=== PATIENT | female | born 1945 | race African-American/Black ===

== ENCOUNTER 2022-08-31 19:28 | Inpatient (IN) | payer MEDICARE, MEDICAID ==
[~2022-08-31] VITALS: Ht 162.6 cm; Wt 64.0 kg
[2022-08-31 20:04] LABS: BASOPHILS % 1.2 % (0.0-2.0); EOSINOPHILS % 1.7 % (0.0-5.0); HEMATOCRIT. 35.8 % (36.0-48.0); HEMOGLOBIN. 12.1 g/dL (12.0-16.0); LYMPHOCYTES % 35.4 % (20.0-50.0); MEAN CORPUSCULAR HEMOGLOBIN 33.2 pg (28.0-32.0); MEAN CORPUSCULAR VOLUME 98.2 fL (81.0-99.0); MEAN PLATELET VOLUME 7.7 fl (7.4-10.4); MONOCYTES % 9.2 % (2.0-8.0); NEUTROPHILS % 52.5 % (40.0-76.0); PLATELET 280 x1000/uL (130-400); RED BLOOD CELL COUNT 3.65 mill/uL (4.2-5.4); RED CELL DISTRIBUTION WIDTH 13.5 % (11.6-14.6)
[2022-08-31 20:13] LABS: CHLORIDE 106 mEq/L (98-107)
[2022-08-31] MEDS ORDERED: POTASSIUM CHLORIDE 20MEQ/PACKET PO ONE (20:30)
[2022-08-31] MEDS ORDERED: DOCUSATE SODIUM 100MG CAPSULE PO PRN (23:15)
[2022-08-31] MEDS ORDERED: NITROGLYCERIN 0.4MG TABLET SL SL PRN (23:15)
[2022-08-31] MEDS ORDERED: NA PHOS,M-B/NA PHOS,DI-BA ENEMA 118ML PR PRN (23:15)
[2022-08-31] MEDS ORDERED: ACETAMINOPHEN 325MG TABLET PO PRN ×2 (23:15)
[2022-08-31] MEDS ORDERED: KETOROLAC 15MG/ML VIAL IV PRN (23:15)
[2022-08-31] MEDS ORDERED: ONDANSETRON HCL 4MG/2ML INJ IV PRN (23:15)
[2022-08-31] MEDS ORDERED: IPRATROPIUM/ALBUTEROL 0.5-3(2.5)MG/3ML NEB NEB PRN (23:15)
[2022-08-31] MEDS ORDERED: GUAIFENESIN 200MG/10ML SUGAR FREE UDC PO PRN (23:15)
[2022-08-31] MEDS ORDERED: CLONIDINE 0.1MG TABLET PO PRN (23:15)
[2022-08-31] MEDS ORDERED: MAGNESIUM/ALUMINUM HYDROXIDE/SIMETHICONE 30ML UDC PO PRN (23:15)
[2022-08-31] MEDS ORDERED: ZOLPIDEM TARTRATE 5MG TABLET PO PRN (23:15)
[2022-08-31] MEDS ORDERED: HALOPERIDOL LACTATE 5MG/ML VIAL IM PRN (23:15)
[2022-09-01 01:10] LABS: T4 FREE 1.14 ng/dL (0.76-1.46)
[2022-09-01 05:50] LABS: BASOPHILS % 1.2 % (0.0-2.0); EOSINOPHILS % 3.2 % (0.0-5.0); HEMATOCRIT. 36.2 % (36.0-48.0); HEMOGLOBIN. 12.6 g/dL (12.0-16.0); LYMPHOCYTES % 46.9 % (20.0-50.0); MEAN CORPUSCULAR HEMOGLOBIN 34.3 pg (28.0-32.0); MEAN CORPUSCULAR VOLUME 98.5 fL (81.0-99.0); MEAN PLATELET VOLUME 8.4 fl (7.4-10.4); MONOCYTES % 8.7 % (2.0-8.0); PLATELET 277 x1000/uL (130-400); RED BLOOD CELL COUNT 3.67 mill/uL (4.2-5.4); RED CELL DISTRIBUTION WIDTH 13.8 % (11.6-14.6)
[2022-09-01 05:56] LABS: CHLORIDE 109 mEq/L (98-107)
[2022-09-01 05:59] LABS: CREATINE KINASE 149 IU/L (26-192)
[2022-09-01 06:04] LABS: PHOSPHORUS 3.1 mg/dL (2.5-4.9)
[2022-09-01 08:25] LABS: CLARITY URINE CLOUDY (CLEAR); COLOR URINE YELLOW (YELLOW); KETONES URINE NEGATIVE (NEGATIVE); LEUKOCYTE ESTERASE URINE 3+ (NEGATIVE); NITRITE URINE NEGATIVE (NEGATIVE); OCCULT BLOOD URINE TRACE (NEGATIVE); PROTEIN URINE TRACE (NEGATIVE); SPECIFIC GRAVITY URINE 1.021 (1.005-1.030)
[2022-09-01 09:00] LABS: *AMPHETAMINES SCREEN URINE NEGATIVE (NEGATIVE); *BARBITURATES SCREEN URINE NEGATIVE (NEGATIVE); *BENZODIAZEPINES SCREEN URINE NEGATIVE (NEGATIVE); *COCAINE SCREEN URINE NEGATIVE (NEGATIVE); CANNABINOID URINE SCREEN NEGATIVE (NEGATIVE); METHADONE URINE SCREEN NEGATIVE (NEGATIVE); OPIATES URINE SCREEN NEGATIVE (NEGATIVE); PHENCYCLIDINE URINE SCREEN NEGATIVE (NEGATIVE)
[2022-09-01] MEDS ORDERED: AMLODIPINE 10MG TABLET PO SCH (09:00)
[2022-09-01] MEDS ORDERED: FAMOTIDINE 20MG TABLET PO SCH (09:00)
[2022-09-01] MEDS ORDERED: ASPIRIN 325MG EC TABLET PO SCH (09:00)
[2022-09-01] MEDS ORDERED: ENOXAPARIN 40MG/0.4ML SYR SUBCUT SCH (09:00)
[2022-09-01 15:14] VITALS: BP 159/84
== END 2022-09-01 17:40 | disposition left against medical advice (07) | DRG 72 ==
LOC: ER 19:28 → MICUSO 23:00 → SUPCPDRO 23:06
PROVIDERS: ADMIT Internal Medicine; ATTEND Internal Medicine
DX: G93.40 Encephalopathy, unspecified (principal); E87.6 Hypokalemia; I10 Essential (primary) hypertension; D64.9 Anemia, unspecified; F03.90 Unspecified dementia, unspecified severity, without behavioral disturbance, psychotic disturbance, mood disturbance, and anxiety; Z53.29 Procedure and treatment not carried out because of patient's decision for other reasons
CPT/HCPCS: 36415; 71250; 80053; 80061; 80305; 81003; 82550; 82553; 82607; 82746; 83036; 83540; 83550; 83735; 84100; 84439; 84443; 84484; 85025; 93005; 93970; 99285; J1650

== ENCOUNTER 2022-09-10 15:47 | Inpatient (IN) | payer MEDICARE, MEDICAID ==
[~2022-09-10] VITALS: Ht 170.2 cm; Wt 47.7 kg
[2022-09-10] MEDS ORDERED: ACETAMINOPHEN 325MG TABLET PO STA (17:07)
[2022-09-10 18:26] LABS: BASOPHILS % 1.1 % (0.0-2.0); EOSINOPHILS % 0.8 % (0.0-5.0); HEMATOCRIT. 38.4 % (36.0-48.0); LYMPHOCYTES % 33.1 % (20.0-50.0); MEAN CORPUSCULAR VOLUME 97.6 fL (81.0-99.0); MEAN PLATELET VOLUME 9.8 fl (7.4-10.4); MONOCYTES % 9.5 % (2.0-8.0); NEUTROPHILS % 55.5 % (40.0-76.0); PLATELET 247 x1000/uL (130-400); RED BLOOD CELL COUNT 3.94 mill/uL (4.2-5.4); RED CELL DISTRIBUTION WIDTH 14.1 % (11.6-14.6)
[2022-09-10 18:33] LABS: CHLORIDE 101 mEq/L (98-107)
[2022-09-10 18:39] LABS: ETHANOL BLOOD < 10 mg/dL
[2022-09-10] MEDS: HYDRALAZINE 20MG/ML VIAL IV PRN (23:38)
[2022-09-11 02:15] VITALS: BP 153/83
[2022-09-11] MEDS ORDERED: AMLO2.5T45 MT (02:35)
[2022-09-11 04:00] VITALS: BP 148/82
[2022-09-11] MEDS: NIFEDIPINE XL 30MG TAB PO SCH ×2 (04:13→08:41)
[2022-09-11] MEDS ORDERED: ONDANSETRON HCL 4MG/2ML INJ IV PRN (05:00)
[2022-09-11] MEDS ORDERED: CLONIDINE 0.1MG TABLET PO PRN (05:00)
[2022-09-11 08:00] VITALS: BP 149/82
[2022-09-11] MEDS: ENOXAPARIN 30MG/0.3ML SYR SUBCUT SCH (08:42)
[2022-09-11 12:00] VITALS: BP 144/77
[2022-09-11 15:40] LABS: BASOPHILS % 1.3 % (0.0-2.0); EOSINOPHILS % 1.5 % (0.0-5.0); HEMATOCRIT. 41.2 % (36.0-48.0); HEMOGLOBIN. 13.8 g/dL (12.0-16.0); LYMPHOCYTES % 33.5 % (20.0-50.0); MEAN CORPUSCULAR VOLUME 98.5 fL (81.0-99.0); MEAN PLATELET VOLUME 9.6 fl (7.4-10.4); MONOCYTES % 10.9 % (2.0-8.0); NEUTROPHILS % 52.8 % (40.0-76.0); PLATELET 237 x1000/uL (130-400); RED BLOOD CELL COUNT 4.19 mill/uL (4.2-5.4); RED CELL DISTRIBUTION WIDTH 13.9 % (11.6-14.6)
[2022-09-11 16:00] VITALS: BP 148/74
[2022-09-11 16:05] LABS: CHLORIDE 102 mEq/L (98-107)
[2022-09-11 16:22] LABS: CREATINE KINASE 88 IU/L (26-192); HDL CHOLESTEROL 86 mg/dL (40-59); LDL CHOLESTEROL 92 mg/dL (5-100)
[2022-09-11 20:00] VITALS: BP 157/86
[2022-09-12] VITALS: BP 189/94
[2022-09-12] MEDS: HYDRALAZINE 20MG/ML VIAL IV PRN (00:56)
[2022-09-12] MEDS: ACETAMINOPHEN 325MG TABLET PO PRN (02:02)
[2022-09-12 04:00] VITALS: BP 105/82
[2022-09-12 08:05] VITALS: BP 120/82
[2022-09-12] MEDS: NIFEDIPINE XL 30MG TAB PO SCH (08:45)
[2022-09-12] MEDS: ENOXAPARIN 30MG/0.3ML SYR SUBCUT SCH (08:45)
[2022-09-12 12:00] VITALS: BP 122/70
[2022-09-12 16:00] VITALS: BP 150/90
[2022-09-12 20:00] VITALS: BP 140/93
[2022-09-13] VITALS: BP 175/88
[2022-09-13] MEDS: HYDRALAZINE 20MG/ML VIAL IV PRN (00:32)
[2022-09-13 04:00] VITALS: BP 159/86
[2022-09-13 08:00] VITALS: BP 159/84
[2022-09-13] MEDS: NIFEDIPINE XL 30MG TAB PO SCH (09:20)
[2022-09-13] MEDS: ENOXAPARIN 30MG/0.3ML SYR SUBCUT SCH (09:21)
[2022-09-13] MEDS: METOPROLOL TARTRATE 25MG TABLET PO SCH ×2 (09:57→20:59)
[2022-09-13 12:00] VITALS: BP 148/81
[2022-09-13] MEDS: THIAMINE HCL 100MG TABLET PO SCH (14:14)
[2022-09-13] MEDS: FOLIC ACID 1MG TABLET PO SCH (14:14)
[2022-09-13 16:00] VITALS: BP 150/75
[2022-09-13 20:00] VITALS: BP 156/83
[2022-09-14] VITALS: BP 157/82
[2022-09-14 04:00] VITALS: BP 165/82
[2022-09-14 08:00] VITALS: BP 129/90
[2022-09-14] MEDS: FOLIC ACID 1MG TABLET PO SCH (09:34)
[2022-09-14] MEDS: THIAMINE HCL 100MG TABLET PO SCH (09:34)
[2022-09-14] MEDS: NIFEDIPINE XL 30MG TAB PO SCH (09:34)
[2022-09-14] MEDS: ENOXAPARIN 30MG/0.3ML SYR SUBCUT SCH (09:35)
[2022-09-14] MEDS: METOPROLOL TARTRATE 25MG TABLET PO SCH ×2 (09:35→21:00)
[2022-09-14] MEDS: ACETAMINOPHEN 325MG TABLET PO PRN (09:36)
[2022-09-14 12:00] VITALS: BP 132/79
[2022-09-14 15:20] LABS: VITAMIN B12 SERUM 273 pg/mL (211-911)
[2022-09-14 16:00] VITALS: BP 142/84
[2022-09-14 20:00] VITALS: BP 108/78
[2022-09-15] VITALS: BP 120/72
[2022-09-15 04:00] VITALS: BP 118/73
[2022-09-15 08:00] VITALS: BP 107/71
[2022-09-15] MEDS: NIFEDIPINE XL 30MG TAB PO SCH (09:00)
[2022-09-15] MEDS: METOPROLOL TARTRATE 25MG TABLET PO SCH ×2 (09:00→20:43)
[2022-09-15] MEDS: FOLIC ACID 1MG TABLET PO SCH (09:23)
[2022-09-15] MEDS: THIAMINE HCL 100MG TABLET PO SCH (09:23)
[2022-09-15] MEDS: ENOXAPARIN 30MG/0.3ML SYR SUBCUT SCH (09:24)
[2022-09-15 12:00] VITALS: BP 134/74
[2022-09-15 16:00] VITALS: BP 133/68
[2022-09-15 20:00] VITALS: BP 131/74
[2022-09-16] VITALS: BP 141/78
[2022-09-16 04:00] VITALS: BP 133/76
[2022-09-16 08:00] VITALS: BP 148/100
[2022-09-16] MEDS: ENOXAPARIN 30MG/0.3ML SYR SUBCUT SCH (08:17)
[2022-09-16] MEDS: METOPROLOL TARTRATE 25MG TABLET PO SCH (08:18)
[2022-09-16] MEDS: NIFEDIPINE XL 30MG TAB PO SCH (08:18)
[2022-09-16] MEDS: THIAMINE HCL 100MG TABLET PO SCH (08:18)
[2022-09-16] MEDS: FOLIC ACID 1MG TABLET PO SCH (08:18)
[2022-09-16] MEDS ORDERED: NALOXONE HCL 0.4MG/ML VIAL IV PRN (08:45)
[2022-09-16] MEDS ORDERED: MORPHINE SULFATE 2 MG/ML CPJ (NOT FOR IM USE) IV PRN (08:45)
[2022-09-16] MEDS ORDERED: CYANOCOBALAMIN 1000MCG/ML VIAL IM SCH (09:30)
[2022-09-16 12:00] VITALS: BP 124/74
[2022-09-16 16:00] VITALS: BP 123/60
[2022-09-16 16:29] VITALS: BP 123/60
[2022-09-16] MEDS ORDERED: AMLODIPINE 2.5MG TABLET PO SCH (17:00)
[2022-09-21 17:11] LABS: 25-HYDROXY VITAMIN D3 13 ng/mL (.)
[2022-09-29] MEDS ORDERED: CYANOCOBALAMIN 1000MCG/ML VIAL IM SCH (09:00)
== END 2022-09-16 20:59 | DRG 308 ==
LOC: ER 15:47 → MICUSO 20:14 → EDBEDREQTM 20:19 → EDBEDREQ 20:19 → 7EST 09-11 01:43
PROVIDERS: ADMIT Internal Medicine; ATTEND Internal Medicine
DX: I49.9 Cardiac arrhythmia, unspecified (principal); G92.8 Other toxic encephalopathy; I50.30 Unspecified diastolic (congestive) heart failure; E78.5 Hyperlipidemia, unspecified; I11.0 Hypertensive heart disease with heart failure; F03.90 Unspecified dementia, unspecified severity, without behavioral disturbance, psychotic disturbance, mood disturbance, and anxiety; I07.1 Rheumatic tricuspid insufficiency; E53.8 Deficiency of other specified B group vitamins; I44.7 Left bundle-branch block, unspecified; F10.20 Alcohol dependence, uncomplicated; Z86.73 Personal history of transient ischemic attack (TIA), and cerebral infarction without residual deficits; Z72.0 Tobacco use; I25.2 Old myocardial infarction; Z78.1 Physical restraint status
CPT/HCPCS: 36415; 70551; 71045; 80053; 80061; 80320; 82306; 82550; 82607; 82746; 82962; 83036; 84443; 84484; 85025; 85379; 93005; 93306; 93880; 97162; 97166; 97530; 99285; A6261; J0360; J1650; J3420; G0480

== ENCOUNTER 2022-11-15 15:12 | Inpatient (IN) | payer MEDICARE, MEDICAID ==
[~2022-11-15] VITALS: Ht 154.9 cm; Wt 50.4 kg
[~2022-11-15 15:12] MED LIST: AMLO2.5T45 MT
[2022-11-15 17:13] LABS: EOSINOPHILS % 1.7 % (0.0-5.0); HEMATOCRIT. 34.4 % (36.0-48.0); HEMOGLOBIN. 11.6 g/dL (12.0-16.0); MEAN CORPUSCULAR VOLUME 97.4 fL (81.0-99.0); MEAN PLATELET VOLUME 7.6 fl (7.4-10.4); MONOCYTES % 9.8 % (2.0-8.0); NEUTROPHILS % 57.5 % (40.0-76.0); PLATELET 294 x1000/uL (130-400); RED BLOOD CELL COUNT 3.53 mill/uL (4.2-5.4); RED CELL DISTRIBUTION WIDTH 14.8 % (11.6-14.6)
[2022-11-15 17:19] LABS: CHLORIDE 105 mEq/L (98-107)
[2022-11-15] MEDS ORDERED: CEFTRIAXONE 1 G PREMIX 50 ML IV ONE (18:45)
[2022-11-15] MEDS ORDERED: POTASSIUM CHLORIDE 20MEQ/PACKET PO ONE (18:45)
[2022-11-15] MEDS ORDERED: KCL 10MEQ/50ML PREMIX 50 ML IV ONE (18:45)
[2022-11-15] MEDS ORDERED: AZITHROMYCIN 500MG/250ML 250 ML IV ONE (18:45)
[2022-11-15] MEDS ORDERED: SODIUM CHLORIDE 0.9% 500 ML IV ONE (19:30)
[2022-11-15] MEDS ORDERED: MAGNESIUM/ALUMINUM HYDROXIDE/SIMETHICONE 30ML UDC PO PRN (22:15)
[2022-11-15] MEDS ORDERED: NITROGLYCERIN 0.4MG TABLET SL SL PRN (22:15)
[2022-11-15] MEDS ORDERED: IPRATROPIUM/ALBUTEROL 0.5-3(2.5)MG/3ML NEB NEB PRN (22:15)
[2022-11-15] MEDS ORDERED: ONDANSETRON HCL 4MG/2ML INJ IV PRN (22:15)
[2022-11-15] MEDS ORDERED: POTASSIUM CHLORIDE 20MEQ TABLET SR PO NR (22:15)
[2022-11-15] MEDS ORDERED: KETOROLAC 15MG/ML VIAL IV PRN (22:15)
[2022-11-15] MEDS ORDERED: DOCUSATE SODIUM 100MG CAPSULE PO PRN (22:15)
[2022-11-15] MEDS ORDERED: GUAIFENESIN 200MG/10ML SUGAR FREE UDC PO PRN (22:15)
[2022-11-15] MEDS ORDERED: ZOLPIDEM TARTRATE 5MG TABLET PO PRN (22:15)
[2022-11-15] MEDS ORDERED: ACETAMINOPHEN 325MG TABLET PO PRN ×2 (22:15)
[2022-11-15 22:32] LABS: ETHANOL BLOOD < 10 mg/dL; T4 FREE 1.16 ng/dL (0.76-1.46); TOTAL IRON BINDING CAPACITY 281 ug/dL (250-450)
[2022-11-15 22:46] LABS: VITAMIN B12 SERUM 304 pg/mL (211-911)
[2022-11-15 22:54] LABS: FOLIC ACID (FOLATE) SERUM > 20.00 ng/mL (>5.38)
[2022-11-15] MEDS: ENOXAPARIN 40MG/0.4ML SYR SUBCUT SCH (23:11)
[2022-11-16] MEDS ORDERED: CEFTRIAXONE 1 G PREMIX 50 ML IV SCH (09:00)
[2022-11-16 09:20] LABS: BASOPHILS % 1.5 % (0.0-2.0); EOSINOPHILS % 3.5 % (0.0-5.0); HEMATOCRIT. 33.3 % (36.0-48.0); HEMOGLOBIN. 11.2 g/dL (12.0-16.0); LYMPHOCYTES % 34.1 % (20.0-50.0); MEAN CORPUSCULAR HEMOGLOBIN 32.8 pg (28.0-32.0); MEAN CORPUSCULAR VOLUME 97.9 fL (81.0-99.0); MONOCYTES % 11.8 % (2.0-8.0); NEUTROPHILS % 49.1 % (40.0-76.0); PLATELET 280 x1000/uL (130-400); RED CELL DISTRIBUTION WIDTH 14.9 % (11.6-14.6)
[2022-11-16 09:33] LABS: PHOSPHORUS 2.7 mg/dL (2.5-4.9)
[2022-11-16 09:38] LABS: CREATINE KINASE MB FRACTION 3.3 ng/mL (0.5-3.6)
[2022-11-16] MEDS: LOSARTAN POTASSIUM 50 MG TABLET PO SCH (09:51)
[2022-11-16] MEDS: FAMOTIDINE 20MG TABLET PO SCH ×2 (09:51→22:13)
[2022-11-16] MEDS: ZINC SULFATE 220 MG ( 50 ) CAPSULE PO SCH (09:51)
[2022-11-16] MEDS: ASCORBIC ACID 500 MG TABLET PO SCH ×2 (09:51→22:12)
[2022-11-16] MEDS: ASPIRIN 325MG EC TABLET PO SCH (09:51)
[2022-11-16 12:50] VITALS: BP 154/90
[2022-11-16 13:00] VITALS: BP 154/90
[2022-11-16 16:00] VITALS: BP 145/88
[2022-11-16 16:45] LABS: CREATINE KINASE MB FRACTION 3.4 ng/mL (0.5-3.6)
[2022-11-16] MEDS ORDERED: AZITHROMYCIN 500 MG in DEXT 5% WATER 250 ML IV SCH (19:00)
[2022-11-16] MEDS ORDERED: CEFTRIAXONE 1,000 MG in DEXTROSE 5% WATER 50 ML IV SCH (19:00)
[2022-11-16 20:00] VITALS: BP 145/76
[2022-11-16] MEDS: ENOXAPARIN 40MG/0.4ML SYR SUBCUT SCH (22:31)
[2022-11-17] VITALS: BP 103/64
[2022-11-17] MEDS: CEFTRIAXONE 1,000 MG in DEXTROSE 5% WATER 50 ML IV SCH ×2 (02:32→20:04)
[2022-11-17] MEDS: AZITHROMYCIN 500 MG in DEXT 5% WATER 250 ML IV SCH ×2 (03:43→20:18)
[2022-11-17 04:00] VITALS: BP 167/86
[2022-11-17 07:58] LABS: BASOPHILS % 1.3 % (0.0-2.0); EOSINOPHILS % 3.6 % (0.0-5.0); HEMATOCRIT. 32.7 % (36.0-48.0); MEAN CORPUSCULAR HEMOGLOBIN 32.7 pg (28.0-32.0); MEAN CORPUSCULAR VOLUME 96.9 fL (81.0-99.0); MEAN PLATELET VOLUME 8.3 fl (7.4-10.4); MONOCYTES % 12.1 % (2.0-8.0); PLATELET 304 x1000/uL (130-400); RED BLOOD CELL COUNT 3.37 mill/uL (4.2-5.4); RED CELL DISTRIBUTION WIDTH 14.6 % (11.6-14.6)
[2022-11-17 08:00] VITALS: BP 162/88
[2022-11-17 08:00] LABS: CHLORIDE 104 mEq/L (98-107)
[2022-11-17 08:03] LABS: PHOSPHORUS 3.3 mg/dL (2.5-4.9)
[2022-11-17] MEDS: ASCORBIC ACID 500 MG TABLET PO SCH ×2 (09:30→20:18)
[2022-11-17] MEDS: LOSARTAN POTASSIUM 50 MG TABLET PO SCH (09:30)
[2022-11-17] MEDS: ASPIRIN 325MG EC TABLET PO SCH (09:30)
[2022-11-17] MEDS: ZINC SULFATE 220 MG ( 50 ) CAPSULE PO SCH (09:31)
[2022-11-17] MEDS: FAMOTIDINE 20MG TABLET PO SCH ×2 (09:31→20:18)
[2022-11-17 12:00] VITALS: BP 167/93
[2022-11-17] MEDS ORDERED: AZIT500T3 MT ×2 (13:38)
[2022-11-17 16:00] VITALS: BP 155/77
[2022-11-17 20:00] VITALS: BP 128/59
[2022-11-17] MEDS: ENOXAPARIN 40MG/0.4ML SYR SUBCUT SCH (20:18)
[2022-11-17] MEDS: HALOPERIDOL 0.5MG TABLET PO SCH (20:18)
[2022-11-18 00:05] VITALS: BP 144/79
[2022-11-18 04:00] VITALS: BP 129/63
[2022-11-18 08:00] VITALS: BP 168/86
[2022-11-18] MEDS: HALOPERIDOL 0.5MG TABLET PO SCH ×2 (09:00→20:32)
[2022-11-18] MEDS: LOSARTAN POTASSIUM 50 MG TABLET PO SCH (09:08)
[2022-11-18] MEDS: ASCORBIC ACID 500 MG TABLET PO SCH ×2 (09:08→20:32)
[2022-11-18] MEDS: ASPIRIN 325MG EC TABLET PO SCH (09:08)
[2022-11-18] MEDS: ZINC SULFATE 220 MG ( 50 ) CAPSULE PO SCH (09:08)
[2022-11-18] MEDS: FAMOTIDINE 20MG TABLET PO SCH ×2 (09:08→20:32)
[2022-11-18 12:00] VITALS: BP 184/99
[2022-11-18 16:00] VITALS: BP 155/88
[2022-11-18 20:30] VITALS: BP 164/95
[2022-11-18] MEDS: CEFTRIAXONE 1,000 MG in DEXTROSE 5% WATER 50 ML IV SCH (20:31)
[2022-11-18] MEDS: AZITHROMYCIN 500 MG TABLET PO SCH (20:32)
[2022-11-18] MEDS: ENOXAPARIN 40MG/0.4ML SYR SUBCUT SCH (20:32)
[2022-11-18] MEDS: CLONIDINE 0.1MG TABLET PO PRN (21:31)
[2022-11-19 00:05] VITALS: BP 153/79
[2022-11-19 04:30] VITALS: BP 98/72
[2022-11-19 08:00] VITALS: BP 155/83
[2022-11-19] MEDS: FAMOTIDINE 20MG TABLET PO SCH ×2 (09:25→20:58)
[2022-11-19] MEDS: LOSARTAN POTASSIUM 50 MG TABLET PO SCH (09:25)
[2022-11-19] MEDS: ASCORBIC ACID 500 MG TABLET PO SCH ×2 (09:25→20:58)
[2022-11-19] MEDS: ZINC SULFATE 220 MG ( 50 ) CAPSULE PO SCH (09:25)
[2022-11-19] MEDS: ASPIRIN 325MG EC TABLET PO SCH (09:25)
[2022-11-19] MEDS: HALOPERIDOL 0.5MG TABLET PO SCH ×2 (09:25→20:58)
[2022-11-19 12:00] VITALS: BP 170/89
[2022-11-19 16:00] VITALS: BP 125/87
[2022-11-19 20:00] VITALS: BP 102/78
[2022-11-19] MEDS: AZITHROMYCIN 500 MG TABLET PO SCH (20:58)
[2022-11-19] MEDS: ENOXAPARIN 40MG/0.4ML SYR SUBCUT SCH (20:58)
[2022-11-19] MEDS: CEFTRIAXONE 1,000 MG in DEXTROSE 5% WATER 50 ML IV SCH (20:58)
[2022-11-20] VITALS: BP 143/70
[2022-11-20 04:00] VITALS: BP 109/78
[2022-11-20 08:00] VITALS: BP 153/74
[2022-11-20] MEDS: ZINC SULFATE 220 MG ( 50 ) CAPSULE PO SCH (10:39)
[2022-11-20] MEDS: FAMOTIDINE 20MG TABLET PO SCH ×2 (10:39→20:34)
[2022-11-20] MEDS: LOSARTAN POTASSIUM 50 MG TABLET PO SCH (10:39)
[2022-11-20] MEDS: ASPIRIN 325MG EC TABLET PO SCH (10:39)
[2022-11-20] MEDS: ASCORBIC ACID 500 MG TABLET PO SCH ×2 (10:39→20:34)
[2022-11-20] MEDS: HALOPERIDOL 0.5MG TABLET PO SCH ×2 (10:43→20:34)
[2022-11-20 12:00] VITALS: BP 157/82
[2022-11-20 16:00] VITALS: BP 143/72
[2022-11-20 20:00] VITALS: BP 132/69
[2022-11-20] MEDS: CEFTRIAXONE 1,000 MG in DEXTROSE 5% WATER 50 ML IV SCH (20:34)
[2022-11-20] MEDS: ENOXAPARIN 40MG/0.4ML SYR SUBCUT SCH (21:16)
[2022-11-21] VITALS: BP 148/88
[2022-11-21 04:00] VITALS: BP 151/77
[2022-11-21 08:00] VITALS: BP_SYST 121; BP_SYST 136; BP_DIAS 72; BP_DIAS 78
[2022-11-21] MEDS: ASPIRIN 325MG EC TABLET PO SCH (09:35)
[2022-11-21] MEDS: FAMOTIDINE 20MG TABLET PO SCH ×2 (09:35→22:02)
[2022-11-21] MEDS: ZINC SULFATE 220 MG ( 50 ) CAPSULE PO SCH (09:35)
[2022-11-21] MEDS: HALOPERIDOL 0.5MG TABLET PO SCH ×2 (09:35→22:02)
[2022-11-21] MEDS: LOSARTAN POTASSIUM 50 MG TABLET PO SCH (09:35)
[2022-11-21] MEDS: ASCORBIC ACID 500 MG TABLET PO SCH ×2 (09:35→22:02)
[2022-11-21 12:00] VITALS: BP 135/60
[2022-11-21 16:00] VITALS: BP_SYST 122; BP_SYST 172; BP_DIAS 72; BP_DIAS 94
[2022-11-21 17:19] LABS: BASOPHILS % 3.3 % (0.0-2.0); EOSINOPHILS % 4.3 % (0.0-5.0); HEMATOCRIT. 35.7 % (36.0-48.0); HEMOGLOBIN. 11.9 g/dL (12.0-16.0); LYMPHOCYTES % 31.5 % (20.0-50.0); MEAN CORPUSCULAR HEMOGLOBIN 32.9 pg (28.0-32.0); MEAN CORPUSCULAR VOLUME 98.6 fL (81.0-99.0); MEAN PLATELET VOLUME 8.1 fl (7.4-10.4); MONOCYTES % 11.5 % (2.0-8.0); NEUTROPHILS % 49.4 % (40.0-76.0); PLATELET 346 x1000/uL (130-400); RED BLOOD CELL COUNT 3.62 mill/uL (4.2-5.4); RED CELL DISTRIBUTION WIDTH 14.6 % (11.6-14.6)
[2022-11-21 17:30] LABS: CHLORIDE 113 mEq/L (98-107)
[2022-11-21 17:34] LABS: PHOSPHORUS 3.3 mg/dL (2.5-4.9)
[2022-11-21 20:00] VITALS: BP 154/83
[2022-11-21] MEDS: ENOXAPARIN 40MG/0.4ML SYR SUBCUT SCH (22:03)
[2022-11-22] VITALS: BP 149/90
[2022-11-22 04:00] VITALS: BP 165/83
[2022-11-22 08:00] VITALS: BP 135/78
[2022-11-22] MEDS: LOSARTAN POTASSIUM 50 MG TABLET PO SCH (09:20)
[2022-11-22] MEDS: HALOPERIDOL 0.5MG TABLET PO SCH (09:20)
[2022-11-22] MEDS: ZINC SULFATE 220 MG ( 50 ) CAPSULE PO SCH (09:20)
[2022-11-22] MEDS: FAMOTIDINE 20MG TABLET PO SCH (09:20)
[2022-11-22] MEDS: ASPIRIN 325MG EC TABLET PO SCH (09:20)
[2022-11-22] MEDS: ASCORBIC ACID 500 MG TABLET PO SCH (09:20)
[2022-11-22 12:00] VITALS: BP_SYST 155; BP_SYST 166; BP_DIAS 91; BP_DIAS 93
[2022-11-22] MEDS: CLONIDINE 0.1MG TABLET PO PRN (12:49)
[2022-11-22] MEDS ORDERED: LOSA50TA3 PO (13:36)
[2022-11-22 15:49] VITALS: BP 120/60
== END 2022-11-22 16:50 | disposition home or self-care (01) | DRG 194 ==
LOC: ER 15:20 → MICUSO 21:30 → EDBEDREQTM 21:32 → EDBEDREQ 21:32 → 7WST 11-16 13:40
PROVIDERS: ADMIT Internal Medicine; ATTEND Internal Medicine
DX: J18.9 Pneumonia, unspecified organism (principal); E44.1 Mild protein-calorie malnutrition; F03.90 Unspecified dementia, unspecified severity, without behavioral disturbance, psychotic disturbance, mood disturbance, and anxiety; E11.9 Type 2 diabetes mellitus without complications; E87.6 Hypokalemia; Z20.822 Contact with and (suspected) exposure to COVID-19; I11.9 Hypertensive heart disease without heart failure; J45.909 Unspecified asthma, uncomplicated; D64.9 Anemia, unspecified; Z68.21 Body mass index [BMI] 21.0-21.9, adult; W18.2XXA Fall in (into) shower or empty bathtub, initial encounter; Y93.E1 Activity, personal bathing and showering; Y92.009 Unspecified place in unspecified non-institutional (private) residence as the place of occurrence of the external cause; Y99.8 Other external cause status
CPT/HCPCS: 36415; 71045; 72170; 80048; 80053; 80320; 82550; 82553; 82607; 82746; 82962; 83540; 83550; 83605; 83735; 83880; 84100; 84145; 84439; 84443; 84484; 85025; 85379; 87426; 87804; 93005; 93970; 97116; 97162; 97165; 97530; 99285; J0456; J0696; J1650; J3480; J7040; J7060; G0480

== ENCOUNTER 2023-02-04 23:45 | Emergency (ER) | payer MEDICARE, MEDICAID ==
[~2023-02-04] VITALS: Ht 167.6 cm; Wt 50.0 kg
[~2023-02-04 23:45] MED LIST changes: +LOSA50TA3 PO
[2023-02-04 23:47] VITALS: BP 179/87
[2023-02-05 00:53] LABS: CLARITY URINE CLOUDY (CLEAR); COLOR URINE YELLOW (YELLOW); KETONES URINE TRACE (NEGATIVE); LEUKOCYTE ESTERASE URINE 1+ (NEGATIVE); NITRITE URINE POSITIVE (NEGATIVE); OCCULT BLOOD URINE TRACE (NEGATIVE); PH URINE 6.5 (4.5-8.0); PROTEIN URINE 1+ (NEGATIVE); SPECIFIC GRAVITY URINE 1.024 (1.005-1.030)
[2023-02-05 00:54] LABS: BASOPHILS % 2.9 % (0.0-2.0); EOSINOPHILS % 1.7 % (0.0-5.0); HEMATOCRIT. 38.5 % (36.0-48.0); HEMOGLOBIN. 12.9 g/dL (12.0-16.0); LYMPHOCYTES % 36.9 % (20.0-50.0); MEAN CORPUSCULAR HEMOGLOBIN 32.1 pg (28.0-32.0); MEAN CORPUSCULAR VOLUME 95.8 fL (81.0-99.0); NEUTROPHILS % 48.5 % (40.0-76.0); PLATELET 290 x1000/uL (130-400); RED BLOOD CELL COUNT 4.02 mill/uL (4.2-5.4); RED CELL DISTRIBUTION WIDTH 14.2 % (11.6-14.6)
[2023-02-05 01:02] LABS: CHLORIDE 107 mEq/L (98-107)
[2023-02-05 01:11] LABS: *AMPHETAMINES SCREEN URINE NEGATIVE (NEGATIVE); *BARBITURATES SCREEN URINE NEGATIVE (NEGATIVE); *BENZODIAZEPINES SCREEN URINE NEGATIVE (NEGATIVE); *COCAINE SCREEN URINE NEGATIVE (NEGATIVE); CANNABINOID URINE SCREEN NEGATIVE (NEGATIVE); METHADONE URINE SCREEN NEGATIVE (NEGATIVE); OPIATES URINE SCREEN NEGATIVE (NEGATIVE); PHENCYCLIDINE URINE SCREEN NEGATIVE (NEGATIVE)
[2023-02-05 01:21] LABS: ETHANOL BLOOD < 10 mg/dL
[2023-02-05] MEDS ORDERED: NITROFURANTOIN 100MG M/M CAPSULE PO NR (01:45)
[2023-02-05] MEDS ORDERED: POTASSIUM CHLORIDE 20MEQ TABLET SR PO NR (01:45)
[2023-02-05] MEDS ORDERED: NITROFURANTOIN 100MG M/M CAPSULE PO SCH ×2 (09:00→18:00)
[2023-02-05] MEDS ORDERED: NITR-87 MT (18:31)
== END 2023-02-05 18:50 | disposition home or self-care (01) ==
LOC: ER 23:45
DX: R45.1 Restlessness and agitation (principal); N39.0 Urinary tract infection, site not specified; Z04.89 Encounter for examination and observation for other specified reasons; I10 Essential (primary) hypertension; F03.90 Unspecified dementia, unspecified severity, without behavioral disturbance, psychotic disturbance, mood disturbance, and anxiety; Z20.822 Contact with and (suspected) exposure to COVID-19
CPT/HCPCS: 36415; 80053; 80305; 80307; 80320; 80329; 81003; 85025; 87426; 99283; C9803; G0480

== ENCOUNTER 2024-02-04 18:22 | Inpatient (IN) | payer MEDICARE, MEDICAID ==
[~2024-02-04] VITALS: Ht 167.6 cm; Wt 52.2 kg
[~2024-02-04 18:22] MED LIST changes: +LOSA-413 PO; -LOSA50TA3 PO; +NITR-87 MT
[2024-02-05 05:01] LABS: BASOPHILS % 1.4 % (0.0-2.0); EOSINOPHILS % 4.2 % (0.0-5.0); HEMATOCRIT. 33.4 % (36.0-48.0); LYMPHOCYTES % 48.2 % (20.0-50.0); MEAN CORPUSCULAR HEMOGLOBIN 32.4 pg (28.0-32.0); MEAN CORPUSCULAR VOLUME 98.1 fL (81.0-99.0); MEAN PLATELET VOLUME 9.4 fl (7.4-10.4); MONOCYTES % 8.9 % (2.0-8.0); NEUTROPHILS % 37.3 % (40.0-76.0); PLATELET 261 x1000/uL (130-400); RED BLOOD CELL COUNT 3.41 mill/uL (4.2-5.4); RED CELL DISTRIBUTION WIDTH 14.2 % (11.6-14.6); WHITE BLOOD COUNT 5.4 x1000/uL (4.5-11.0)
[2024-02-05] MEDS: AMLODIPINE 5MG TABLET PO ONE (06:15)
[2024-02-05 08:00] VITALS: BP 157/67; PULSE 55; RESP 18; TEMP 97.2
[2024-02-05] MEDS ORDERED: CLONIDINE 0.1MG TABLET PO PRN (08:45)
[2024-02-05] MEDS ORDERED: ACETAMINOPHEN 325MG TABLET PO PRN ×2 (08:45)
[2024-02-05] MEDS ORDERED: NITROGLYCERIN 0.4MG TABLET SL SL PRN (08:45)
[2024-02-05] MEDS ORDERED: ZOLPIDEM TARTRATE 5MG TABLET PO PRN (08:45)
[2024-02-05] MEDS ORDERED: MAGNESIUM/ALUMINUM HYDROXIDE/SIMETHICONE 30ML UDC PO PRN (08:45)
[2024-02-05] MEDS ORDERED: GUAIFENESIN 200MG/10ML SUGAR FREE UDC PO PRN (08:45)
[2024-02-05] MEDS ORDERED: IPRATROPIUM/ALBUTEROL 0.5-3(2.5)MG/3ML NEB NEB PRN (08:45)
[2024-02-05] MEDS ORDERED: ONDANSETRON HCL 4MG/2ML INJ IV PRN (08:45)
[2024-02-05] MEDS ORDERED: DOCUSATE SODIUM 100MG CAPSULE PO PRN (08:45)
[2024-02-05] MEDS ORDERED: AMLO5TAB88 PO (10:09)
[2024-02-05] MEDS ORDERED: METO25TA6 PO (10:09)
[2024-02-05] MEDS: FAMOTIDINE 20MG TABLET PO NR (11:28)
[2024-02-05] MEDS: ZINC SULFATE 220 MG ( 50 ) CAPSULE PO SCH (11:29)
[2024-02-05] MEDS: ASCORBIC ACID 500 MG TABLET PO SCH (11:29)
[2024-02-05] MEDS: LOSARTAN 50 MG TABLET PO SCH (11:29)
[2024-02-05] MEDS: ASPIRIN 325MG EC TABLET PO SCH (11:29)
[2024-02-05 12:00] VITALS: BP 151/73; PULSE 66; RESP 17; TEMP 96.4
[2024-02-05 13:50] LABS: ALANINE AMINOTRANSFERASE < 7 IU/L (10-49); ALBUMIN 4.1 g/dL (3.2-4.8); ASPARTATE AMINOTRANSFERASE 14 IU/L (<34); BILIRUBIN TOTAL 0.4 mg/dL (0.1-1.0); CALCIUM 9.6 mg/dL (8.7-10.4); CARBON DIOXIDE 31 mEq/L (21-32); CHLORIDE 108 mEq/L (98-107); CHOLESTEROL 166 mg/dL (<200); CREATININE 0.8 mg/dL (0.6-1.0); GLUCOSE 99 mg/dL (70-105); HDL CHOLESTEROL 58 mg/dL (>65); IRON 87 ug/dL (50-170); LDL CHOLESTEROL 89 mg/dL (5-100); POTASSIUM 4.6 mEq/L (3.5-5.1); PROTEIN TOTAL 7.3 g/dL (6.0-8.3); SODIUM 142 mEq/L (136-145); THYROID STIMULATING HORMONE 0.71 uIU/mL (0.55-4.78); TOTAL IRON BINDING CAPACITY 187 ug/dl (250-425); TRIGLYCERIDE 55 mg/dL (0-150); UREA NITROGEN BLOOD 14 mg/dL (9-23); VITAMIN B12 SERUM 209 pg/mL (211-911)
[2024-02-05] MEDS: ENOXAPARIN 40MG/0.4ML SYR SUBCUT SCH (14:00)
[2024-02-05 16:00] VITALS: BP 159/65; PULSE 71; RESP 18; TEMP 97.3
[2024-02-05 20:00] VITALS: BP 163/89; PULSE 67; RESP 18; TEMP 96.8
[2024-02-06 04:00] VITALS: BP 145/73; PULSE 70; RESP 18; TEMP 96.8
[2024-02-06 07:19] LABS: EOSINOPHILS % 3.7 % (0.0-5.0); HEMATOCRIT. 33.8 % (36.0-48.0); HEMOGLOBIN. 11.5 g/dL (12.0-16.0); LYMPHOCYTES % 44.1 % (20.0-50.0); MEAN CORPUSCULAR HEMOGLOBIN 32.8 pg (28.0-32.0); MEAN CORPUSCULAR HGB CONC 34.1 g/dL (31.0-37.0); MEAN CORPUSCULAR VOLUME 96.2 fL (81.0-99.0); MEAN PLATELET VOLUME 9.1 fl (7.4-10.4); MONOCYTES % 9.9 % (2.0-8.0); NEUTROPHILS % 39.3 % (40.0-76.0); PLATELET 259 x1000/uL (130-400); RED BLOOD CELL COUNT 3.51 mill/uL (4.2-5.4); RED CELL DISTRIBUTION WIDTH 14.5 % (11.6-14.6); WHITE BLOOD COUNT 5.4 x1000/uL (4.5-11.0)
[2024-02-06 07:27] LABS: ALANINE AMINOTRANSFERASE < 7 IU/L (10-49); ALBUMIN 3.8 g/dL (3.2-4.8); ASPARTATE AMINOTRANSFERASE 11 IU/L (<34); BILIRUBIN TOTAL 0.4 mg/dL (0.1-1.0); CARBON DIOXIDE 27 mEq/L (21-32); CHLORIDE 107 mEq/L (98-107); CREATININE 0.7 mg/dL (0.6-1.0); GLUCOSE 89 mg/dL (70-105); PHOSPHORUS 2.8 mg/dL (2.5-4.9); POTASSIUM 3.4 mEq/L (3.5-5.1); SODIUM 141 mEq/L (136-145); UREA NITROGEN BLOOD 15 mg/dL (9-23)
[2024-02-06 08:00] VITALS: BP 105/84; PULSE 82; RESP 16; TEMP 97.1
[2024-02-06] MEDS: FAMOTIDINE 20MG TABLET PO SCH (08:31)
[2024-02-06] MEDS: POTASSIUM CHLORIDE 20MEQ TABLET SR PO NR (09:45)
[2024-02-06 12:00] VITALS: BP 154/83; PULSE 72; RESP 19; TEMP 98.1
[2024-02-06 16:00] VITALS: BP 159/96; PULSE 72; RESP 19; TEMP 98.1
[2024-02-06] MEDS: KETOROLAC 15MG/ML VIAL IV PRN (17:35)
[2024-02-07 08:00] VITALS: BP 152/88; PULSE 75; RESP 18; TEMP 98.1
[2024-02-07 12:00] VITALS: RESP 18
[2024-02-07 16:00] VITALS: BP 143/69; PULSE 82; RESP 18; TEMP 96.8
[2024-02-08] VITALS: BP 156/94; PULSE 75; RESP 19; TEMP 98
[2024-02-08 08:00] VITALS: BP 168/66; PULSE 61; RESP 18; TEMP 97.9
[2024-02-08 12:00] VITALS: BP 164/78; PULSE 65; RESP 18; TEMP 96.9
[2024-02-08 16:00] VITALS: BP 148/77; PULSE 68; RESP 17; TEMP 97.3
[2024-02-08] MEDS ORDERED: ASCO-339 MT (17:11)
[2024-02-08 17:13] VITALS: BP 154/78; PULSE 65; TEMP 96.9; O2SAT 98
[2024-02-08 20:00] VITALS: BP 155/78; PULSE 74; RESP 18; TEMP 97
[2024-02-09] VITALS: BP 141/78; PULSE 70; RESP 18; TEMP 97.3
[2024-02-09 04:00] VITALS: BP 140/66; RESP 18; TEMP 97
[2024-02-09 12:00] VITALS: BP 165/85; PULSE 61; RESP 20; TEMP 98.4
== END 2024-02-09 17:15 | disposition home or self-care (01) | DRG 93 ==
LOC: ER 18:33 → 4WST 02-05 03:44 → EDBEDREQ 02-05 03:46 → 4WST 02-05 12:45
PROVIDERS: ADMIT Internal Medicine; ATTEND Internal Medicine
DX: G92.8 Other toxic encephalopathy (principal); D63.8 Anemia in other chronic diseases classified elsewhere; F03.90 Unspecified dementia, unspecified severity, without behavioral disturbance, psychotic disturbance, mood disturbance, and anxiety; I11.9 Hypertensive heart disease without heart failure
CPT/HCPCS: 36415; 71045; 80053; 80061; 80329; 82607; 82746; 83036; 83540; 83550; 83605; 83735; 84100; 84145; 84439; 84443; 85025; 93306; 93971; 97116; 97162; 97166; 97535; 99285; C1893; J1650; J1885

== ENCOUNTER 2024-03-07 22:40 | Inpatient (IN) | payer MEDICARE, MEDICAID ==
[~2024-03-07] VITALS: Ht 167.6 cm; Wt 49.9 kg
[2024-03-07 22:40] VITALS: BP 129/69; PULSE 73; RESP 18; TEMP 97.8
[~2024-03-07 22:40] MED LIST changes: +AMLO10TA80 PO; -AMLO2.5T45 MT; +AMLO5TAB88 PO; +ASCO-339 MT; +FAMO20TA8 PO; -LOSA-413 PO; +METO25TA6 PO; -NITR-87 MT; +ZOLP5TAB2 PO
[2024-03-08] MEDS ORDERED: KETOROLAC 15MG/ML VIAL IV PRN
[2024-03-08] MEDS ORDERED: IPRATROPIUM/ALBUTEROL 0.5-3(2.5)MG/3ML NEB HHN PRN
[2024-03-08] MEDS ORDERED: ONDANSETRON HCL 4MG/2ML INJ IV PRN
[2024-03-08] MEDS ORDERED: HYDRALAZINE 20MG/ML VIAL IV PRN
[2024-03-08] MEDS ORDERED: CLONIDINE 0.1MG TABLET PO PRN (00:30)
[2024-03-08] MEDS ORDERED: NITROGLYCERIN 0.4MG TABLET SL SL PRN (00:30)
[2024-03-08] MEDS ORDERED: GUAIFENESIN 200MG/10ML SUGAR FREE UDC PO PRN (00:30)
[2024-03-08] MEDS ORDERED: ACETAMINOPHEN 325MG TABLET PO PRN (00:30)
[2024-03-08] MEDS ORDERED: MAGNESIUM/ALUMINUM HYDROXIDE/SIMETHICONE 30ML UDC PO PRN (00:30)
[2024-03-08] MEDS ORDERED: HYDRALAZINE 10 MG in SODIUM CHLORIDE 0.9% 49.5 ML IV PRN (00:30)
[2024-03-08 03:04] VITALS: BP 129/69; PULSE 73; RESP 18; TEMP 97.8
[2024-03-08] MEDS: AZITHROMYCIN 500MG/250ML 250 ML IV SCH (06:18)
[2024-03-08 08:00] VITALS: BP 119/68; PULSE 76; RESP 18; TEMP 97.2
[2024-03-08 08:20] LABS: ACETAMINOPHEN < 2 ug/mL (10-30); ALANINE AMINOTRANSFERASE < 7 IU/L (10-49); ALBUMIN 4.1 g/dL (3.2-4.8); ASPARTATE AMINOTRANSFERASE 18 IU/L (<34); BILIRUBIN TOTAL 0.3 mg/dL (0.1-1.0); CALCIUM 9.3 mg/dL (8.7-10.4); CARBON DIOXIDE 21 mEq/L (21-32); CHLORIDE 106 mEq/L (98-107); CREATININE 0.8 mg/dL (0.6-1.0); GLUCOSE 65 mg/dL (70-105); POTASSIUM 4.4 mEq/L (3.5-5.1); PREALBUMIN 13.4 mg/dl (10.0-40.0); PROTEIN TOTAL 7.9 g/dL (6.0-8.3); SODIUM 137 mEq/L (136-145); UREA NITROGEN BLOOD 15 mg/dL (9-23)
[2024-03-08] MEDS: GUAIFENESIN 600MG ER TABLET PO SCH (09:07)
[2024-03-08] MEDS: ASPIRIN 325MG EC TABLET PO SCH (09:07)
[2024-03-08] MEDS: AMLODIPINE 10MG TABLET PO SCH (09:08)
[2024-03-08 10:11] LABS: BASOPHILS % 2.4 % (0.0-2.0); DIFFERENTIAL COMMENT 0; EOSINOPHILS % 5.4 % (0.0-5.0); HEMATOCRIT. 39.9 % (36.0-48.0); HEMOGLOBIN. 12.4 g/dL (12.0-16.0); LYMPHOCYTES % 49.6 % (20.0-50.0); MEAN CORPUSCULAR HEMOGLOBIN 32.9 pg (28.0-32.0); MEAN CORPUSCULAR HGB CONC 31.1 g/dL (31.0-37.0); MEAN PLATELET VOLUME 8.8 fl (7.4-10.4); MONOCYTES % 7.5 % (2.0-8.0); NEUTROPHILS % 35.1 % (40.0-76.0); PLATELET 255 x1000/uL (130-400); RED BLOOD CELL COUNT 3.76 mill/uL (4.2-5.4); RED CELL DISTRIBUTION WIDTH 15.8 % (11.6-14.6); WHITE BLOOD COUNT 5.5 x1000/uL (4.5-11.0)
[2024-03-08] MEDS: ACETAMINOPHEN 325MG TABLET PO PRN (11:09)
[2024-03-08] MEDS: THIAMINE HCL 100MG TABLET PO SCH (12:57)
[2024-03-08] MEDS: FOLIC ACID 1MG TABLET PO SCH (12:57)
[2024-03-08 19:47] VITALS: BP 138/77; PULSE 76; RESP 18; TEMP 96.9
[2024-03-08] MEDS: ZOLPIDEM TARTRATE 5MG TABLET PO PRN (21:17)
[2024-03-08] MEDS: FAMOTIDINE 20MG TABLET PO SCH (21:17)
[2024-03-08] MEDS: ENOXAPARIN 30MG/0.3ML SYR SUBCUT SCH (21:20)
[2024-03-09 07:41] LABS: BASOPHILS % 3.3 % (0.0-2.0); DIFFERENTIAL COMMENT 0; EOSINOPHILS % 4.7 % (0.0-5.0); HEMATOCRIT. 39.8 % (36.0-48.0); HEMOGLOBIN. 13.1 g/dL (12.0-16.0); LYMPHOCYTES % 52.9 % (20.0-50.0); MEAN CORPUSCULAR HEMOGLOBIN 32.7 pg (28.0-32.0); MEAN CORPUSCULAR HGB CONC 32.8 g/dL (31.0-37.0); MEAN CORPUSCULAR VOLUME 99.7 fL (81.0-99.0); MEAN PLATELET VOLUME 9.7 fl (7.4-10.4); MONOCYTES % 7.5 % (2.0-8.0); NEUTROPHILS % 31.6 % (40.0-76.0); PLATELET 263 x1000/uL (130-400); RED BLOOD CELL COUNT 3.99 mill/uL (4.2-5.4); RED CELL DISTRIBUTION WIDTH 14.2 % (11.6-14.6); WHITE BLOOD COUNT 5.5 x1000/uL (4.5-11.0)
[2024-03-09 07:49] LABS: ALANINE AMINOTRANSFERASE 7 IU/L (10-49); ALBUMIN 4.7 g/dL (3.2-4.8); AMMONIA < 17 uMol/L (<32); ASPARTATE AMINOTRANSFERASE 17 IU/L (<34); BILIRUBIN TOTAL 0.4 mg/dL (0.1-1.0); CALCIUM 9.8 mg/dL (8.7-10.4); CARBON DIOXIDE 26 mEq/L (21-32); CHLORIDE 107 mEq/L (98-107); CREATININE 0.8 mg/dL (0.6-1.0); GLUCOSE 82 mg/dL (70-105); IRON 81 ug/dL (50-170); POTASSIUM 4.2 mEq/L (3.5-5.1); PROTEIN TOTAL 8.5 g/dL (6.0-8.3); SODIUM 141 mEq/L (136-145); THYROID STIMULATING HORMONE 2.26 uIU/mL (0.55-4.78); TOTAL IRON BINDING CAPACITY 124 ug/dl (250-425); UREA NITROGEN BLOOD 20 mg/dL (9-23)
[2024-03-09 07:50] LABS: FERRITIN 62 ng/mL (10-291); FOLIC ACID (FOLATE) SERUM 17.97 ng/mL (>5.38); VITAMIN B12 SERUM 368 pg/mL (211-911)
[2024-03-09 08:00] VITALS: BP 152/80; PULSE 76; RESP 18; TEMP 96.6
[2024-03-09] MEDS: CYANOCOBALAMIN 1000MCG/ML VIAL IM SCH (14:30)
[2024-03-09 20:00] VITALS: BP 132/62; PULSE 72; RESP 18; TEMP 97
[2024-03-10] MEDS: AZITHROMYCIN 500 MG TABLET PO SCH (06:13)
[2024-03-10 08:00] VITALS: BP 143/74; PULSE 75; RESP 18; TEMP 97
[2024-03-10 12:00] VITALS: BP 138/68; PULSE 72; RESP 18; TEMP 98.2
[2024-03-10] MEDS: ERGOCALCIFEROL 50000UNITS CAPSULE PO SCH (14:27)
[2024-03-10 16:00] VITALS: BP 128/78; PULSE 70; RESP 17; TEMP 97.8
[2024-03-10 20:00] VITALS: BP 131/88; PULSE 83; RESP 18; TEMP 97.2
[2024-03-11 08:00] VITALS: BP 161/78; PULSE 63; RESP 17; TEMP 96.6
[2024-03-11 20:00] VITALS: BP 138/74; PULSE 88; RESP 20; TEMP 97.6
[2024-03-12 08:00] VITALS: BP 119/79; PULSE 83; RESP 18; TEMP 97.9
[2024-03-12] MEDS ORDERED: IPRATROPIUM/ALBUTEROL 0.5-3(2.5)MG/3ML NEB HHN PRN (11:00)
[2024-03-12 19:58] VITALS: BP 149/67; PULSE 81; RESP 18; TEMP 96.9
[2024-03-13 08:00] VITALS: BP 161/85; PULSE 70; RESP 18; TEMP 96.3
[2024-03-13] MEDS: DOCUSATE SODIUM 100MG CAPSULE PO PRN (09:07)
[2024-03-13 20:00] VITALS: BP 116/66; PULSE 89; RESP 18; TEMP 98.1
[2024-03-14 08:00] VITALS: BP 99/62; PULSE 79; RESP 18; TEMP 98.1
[2024-03-14 15:33] LABS: BASOPHILS % 3.1 % (0.0-2.0); EOSINOPHILS % 3.4 % (0.0-5.0); HEMATOCRIT. 38.9 % (36.0-48.0); HEMOGLOBIN. 13.1 g/dL (12.0-16.0); LYMPHOCYTES % 41.1 % (20.0-50.0); MEAN CORPUSCULAR HEMOGLOBIN 33.4 pg (28.0-32.0); MEAN CORPUSCULAR HGB CONC 33.7 g/dL (31.0-37.0); MEAN CORPUSCULAR VOLUME 99.2 fL (81.0-99.0); MEAN PLATELET VOLUME 9.1 fl (7.4-10.4); MONOCYTES % 8.5 % (2.0-8.0); NEUTROPHILS % 43.9 % (40.0-76.0); PLATELET 287 x1000/uL (130-400); RED BLOOD CELL COUNT 3.92 mill/uL (4.2-5.4); RED CELL DISTRIBUTION WIDTH 14.1 % (11.6-14.6); WHITE BLOOD COUNT 6.6 x1000/uL (4.5-11.0)
[2024-03-14 15:38] LABS: CHLORIDE 102 mEq/L (98-107); POTASSIUM 4.5 mEq/L (3.5-5.1); SODIUM 136 mEq/L (136-145)
[2024-03-14 15:39] LABS: CARBON DIOXIDE 30 mEq/L (21-32)
[2024-03-14 15:40] LABS: CALCIUM 9.4 mg/dL (8.7-10.4)
[2024-03-14 15:44] LABS: CREATININE 0.8 mg/dL (0.6-1.0); GLUCOSE 118 mg/dL (70-105); UREA NITROGEN BLOOD 22 mg/dL (9-23)
[2024-03-15 08:00] VITALS: BP 124/57; PULSE 84; RESP 20; TEMP 97.8
[2024-03-15 20:00] VITALS: BP 151/76; PULSE 84; RESP 18; TEMP 98
[2024-03-16 08:00] VITALS: BP 138/76; PULSE 76; RESP 19; TEMP 97
[2024-03-16 20:00] VITALS: BP 122/59; PULSE 82; RESP 19; TEMP 97.6
[2024-03-17 08:00] VITALS: BP 126/61; PULSE 79; RESP 18; TEMP 98
[2024-03-17 19:40] VITALS: BP 152/61; PULSE 76; RESP 18; TEMP 97.9
[2024-03-18 06:55] LABS: EOSINOPHILS % 4.7 % (0.0-5.0); HEMATOCRIT. 37.4 % (36.0-48.0); HEMOGLOBIN. 12.4 g/dL (12.0-16.0); LYMPHOCYTES % 44.8 % (20.0-50.0); MEAN CORPUSCULAR HEMOGLOBIN 32.6 pg (28.0-32.0); MEAN CORPUSCULAR HGB CONC 33.2 g/dL (31.0-37.0); MEAN CORPUSCULAR VOLUME 97.9 fL (81.0-99.0); MEAN PLATELET VOLUME 9.1 fl (7.4-10.4); NEUTROPHILS % 36.5 % (40.0-76.0); PLATELET 268 x1000/uL (130-400); RED BLOOD CELL COUNT 3.82 mill/uL (4.2-5.4); WHITE BLOOD COUNT 6.6 x1000/uL (4.5-11.0)
[2024-03-18 07:36] LABS: CALCIUM 8.9 mg/dL (8.7-10.4); CHLORIDE 106 mEq/L (98-107); POTASSIUM 3.9 mEq/L (3.5-5.1); SODIUM 140 mEq/L (136-145)
[2024-03-18 07:37] LABS: CARBON DIOXIDE 24 mEq/L (21-32)
[2024-03-18 07:42] LABS: CREATININE 0.8 mg/dL (0.6-1.0); GLUCOSE 100 mg/dL (70-105); UREA NITROGEN BLOOD 19 mg/dL (9-23)
[2024-03-18 08:00] VITALS: BP 129/75; PULSE 90; RESP 17; TEMP 97
[2024-03-18 20:00] VITALS: BP 143/76; PULSE 94; RESP 20; TEMP 97.2
[2024-03-19 08:00] VITALS: BP 136/76; PULSE 72; RESP 18; TEMP 97.8
[2024-03-19 20:00] VITALS: BP 132/82; PULSE 86; RESP 18; TEMP 97.7
[2024-03-20 08:00] VITALS: BP 147/77; PULSE 72; RESP 18; TEMP 97
[2024-03-20 20:00] VITALS: BP 138/97; PULSE 58; RESP 20; TEMP 97.2
[2024-03-21 08:00] VITALS: BP 149/77; PULSE 20; RESP 20; TEMP 98.6
[2024-03-21] MEDS ORDERED: THIA100T72 PO (10:35)
[2024-03-21] MEDS ORDERED: CHOL200016 PO (10:35)
[2024-03-21] MEDS ORDERED: ASPI-867 PO (10:35)
[2024-03-21] MEDS ORDERED: FAMO20TA8 PO (10:35)
[2024-03-21] MEDS ORDERED: FOLI-43 PO (10:35)
[2024-03-22 08:00] VITALS: BP 156/87; PULSE 88; RESP 17; TEMP 97.1
[2024-03-22 10:25] VITALS: BP 147/80; PULSE 88; TEMP 97.1; O2SAT 98
== END 2024-03-22 10:45 | disposition home health service (06) | DRG 91 ==
LOC: UNDOADMIN 22:40 → 4WST 22:40
PROVIDERS: ADMIT Physical Medicine & Rehabilitation Spinal Cord Injury Medicine; ATTEND Internal Medicine
DX: G92.8 Other toxic encephalopathy (principal); J69.0 Pneumonitis due to inhalation of food and vomit; J44.1 Chronic obstructive pulmonary disease with (acute) exacerbation; F03.93 Unspecified dementia, unspecified severity, with mood disturbance; J44.0 Chronic obstructive pulmonary disease with (acute) lower respiratory infection; E53.8 Deficiency of other specified B group vitamins; F03.90 Unspecified dementia, unspecified severity, without behavioral disturbance, psychotic disturbance, mood disturbance, and anxiety; F10.20 Alcohol dependence, uncomplicated; I10 Essential (primary) hypertension; E55.9 Vitamin D deficiency, unspecified; R53.81 Other malaise; N63.10 Unspecified lump in the right breast, unspecified quadrant; D50.9 Iron deficiency anemia, unspecified; R26.9 Unspecified abnormalities of gait and mobility; F17.210 Nicotine dependence, cigarettes, uncomplicated; J44.9 Chronic obstructive pulmonary disease, unspecified; R13.10 Dysphagia, unspecified; Z90.10 Acquired absence of unspecified breast and nipple; Z91.81 History of falling; Z85.3 Personal history of malignant neoplasm of breast; Z86.73 Personal history of transient ischemic attack (TIA), and cerebral infarction without residual deficits
CPT/HCPCS: 36415; 80048; 80053; 80307; 82140; 82306; 82607; 82728; 82746; 83036; 83540; 83550; 84134; 84443; 85025; 92523; 92610; 97110; 97116; 97162; 97166; 97530; 97535; 97542; C1893; J0456; J1650; J1885; J3420

== ENCOUNTER 2024-03-25 18:42 | Emergency (ER) | payer MEDICARE, MEDICAID ==
[~2024-03-25] VITALS: Ht 157.5 cm; Wt 59.0 kg
[~2024-03-25 18:42] MED LIST changes: -AMLO5TAB88 PO; +ASPI-867 PO; +CHOL200016 PO; +FOLI-43 PO; -METO25TA6 PO; +THIA100T72 PO; -ZOLP5TAB2 PO
[2024-03-25 18:52] VITALS: O2SAT 94
[2024-03-25 21:45] LABS: BASOPHILS % 1.4 % (0.0-2.0); EOSINOPHILS % 2.1 % (0.0-5.0); HEMATOCRIT. 35.9 % (36.0-48.0); HEMOGLOBIN. 11.9 g/dL (12.0-16.0); MEAN CORPUSCULAR HEMOGLOBIN 32.8 pg (28.0-32.0); MEAN CORPUSCULAR HGB CONC 33.1 g/dL (31.0-37.0); MEAN CORPUSCULAR VOLUME 99.2 fL (81.0-99.0); MEAN PLATELET VOLUME 7.9 fl (7.4-10.4); MONOCYTES % 8.3 % (2.0-8.0); NEUTROPHILS % 55.2 % (40.0-76.0); PLATELET 282 x1000/uL (130-400); RED BLOOD CELL COUNT 3.62 mill/uL (4.2-5.4); RED CELL DISTRIBUTION WIDTH 14.1 % (11.6-14.6); WHITE BLOOD COUNT 8.7 x1000/uL (4.5-11.0)
[2024-03-25 21:51] LABS: CARBON DIOXIDE 23 mEq/L (21-32); CHLORIDE 109 mEq/L (98-107); POTASSIUM 3.8 mEq/L (3.5-5.1); SODIUM 139 mEq/L (136-145)
[2024-03-25 21:56] LABS: CREATININE 0.7 mg/dL (0.6-1.0); GLUCOSE 84 mg/dL (70-105)
[2024-03-25 21:57] LABS: UREA NITROGEN BLOOD 13 mg/dL (9-23)
[2024-03-25 21:58] LABS: ALANINE AMINOTRANSFERASE 16 IU/L (10-49); ALBUMIN 4.1 g/dL (3.2-4.8); ASPARTATE AMINOTRANSFERASE 19 IU/L (<34)
[2024-03-25 21:59] LABS: BILIRUBIN TOTAL 0.5 mg/dL (0.1-1.0); PROTEIN TOTAL 7.5 g/dL (6.0-8.3)
[2024-03-26 12:56] VITALS: BP 125/75; PULSE 71; RESP 15; TEMP 98.6
== END 2024-03-26 12:57 | disposition home or self-care (01) ==
LOC: ER 20:14
DX: M54.2 Cervicalgia (principal); I10 Essential (primary) hypertension; W18.30XA Fall on same level, unspecified, initial encounter; Y93.89 Activity, other specified; Y92.89 Other specified places as the place of occurrence of the external cause; Y99.8 Other external cause status
CPT/HCPCS: 36415; 80053; 85025; 99285